=== PATIENT | female | born 1935 | race Caucasian/White ===

== ENCOUNTER 2024-02-02 16:14 | Inpatient (IN) | payer MEDICARE, BC ==
[2024-02-02] MEDS ORDERED: Ondansetron PF 4 MG/2 ML Vial IVP PRN (20:08)
[2024-02-02 20:44] LABS: #Basophils Less than 0.03 10x3/uL (0.0-0.2); #Eosinphils Less than 0.03 10x3/uL (0.0-0.7); %Basophils 0.2 % (0.0-1.0); %Eosinophils 0.2 % (0.0-10.0); %Lymphocytes 11.9 % (21.0-51.0); %Monocytes 1.5 % (0.0-10.0); %Neutrophils 85.6 % (42.0-75.0); Hematocrit 33.5 % (36.0-47.0); Hemoglobin 10.9 g/dL (12.0-16.0); Mean Corpuscular HGB CONC 32.5 g/dL (32.0-36.0); Mean Corpuscular Hemoglobin 29.3 pg (27.0-31.0); Mean Corpuscular Volume 90.1 fL (78.0-98.0); Mean Platelet Volume 10.3 fL (7.4-10.4); Platelet Count 128 10x3/uL (130-400); RBC Distribution Width 13.9 % (11.5-14.5); Red Blood Cell (RBC) Count 3.72 mill/uL (4.20-5.40)
[2024-02-02] MEDS: levETIRAcetam 500 MG (5 mL) VIAL SLOW IVP SCH (21:06)
[2024-02-02] MEDS: Dexamethasone 4 mg/ml Vial SLOW IVP SCH (21:07)
[2024-02-02] MEDS ORDERED: Loratadine 10 MG TAB PO PRN (21:40)
[2024-02-03] MEDS: Sodium Chloride 0.9% 1,000 ML IV SCH (01:34)
[2024-02-03 04:58] LABS: #Basophils Less than 0.03 10x3/uL (0.0-0.2); #Eosinphils Less than 0.03 10x3/uL (0.0-0.7); %Basophils 0.2 % (0.0-1.0); %Lymphocytes 19.7 % (21.0-51.0); %Monocytes 1.9 % (0.0-10.0); %Neutrophils 77.6 % (42.0-75.0); Hematocrit 32.8 % (36.0-47.0); Hemoglobin 10.7 g/dL (12.0-16.0); Mean Corpuscular HGB CONC 32.6 g/dL (32.0-36.0); Mean Corpuscular Hemoglobin 30.1 pg (27.0-31.0); Mean Corpuscular Volume 92.1 fL (78.0-98.0); Mean Platelet Volume 10.4 fL (7.4-10.4); Platelet Count 137 10x3/uL (130-400); RBC Distribution Width 13.9 % (11.5-14.5); Red Blood Cell (RBC) Count 3.56 mill/uL (4.20-5.40)
[2024-02-03 05:45] LABS: Anion Gap 15 mmol/L (10-20); BUN (Urea Nitrogen) 16 mg/dL (9.8-20.1); Calc. Creatinine Clearance 65 mL/min (70-130); Calcium 8.8 mg/dL (7.8-10.44); Carbon Dioxide 25 mmol/L (23-31); Chloride 107 mmol/L (98-107); Estimated GFR 85; Glucose 139 mg/dL (83-110); Potassium 4.1 mmol/L (3.5-5.1); Sodium 143 mmol/L (136-145)
[2024-02-03] MEDS: Levothyroxine Sodium 112 MCG TAB PO SCH (05:58)
[2024-02-03] MEDS: Digoxin 0.125 MG TAB PO SCH (09:14)
[2024-02-03] MEDS: Hydrochlorothiazide 25 MG TAB PO SCH (09:15)
[2024-02-03] MEDS: Losartan 25 MG TAB PO SCH (09:15)
[2024-02-03] MEDS: levETIRAcetam 500 MG (5 mL) VIAL SLOW IVP SCH (09:31)
[2024-02-03] MEDS: Nystatin Powder 15 GM BOT TOP SCH (15:33)
[2024-02-03] MEDS: QUEtiapine 25 MG TAB PO SCH (22:14)
[2024-02-04 05:01] LABS: #Basophils Less than 0.03 10x3/uL (0.0-0.2); #Eosinphils Less than 0.03 10x3/uL (0.0-0.7); %Lymphocytes 17.1 % (21.0-51.0); %Monocytes 2.8 % (0.0-10.0); %Neutrophils 79.5 % (42.0-75.0); Hemoglobin 10.5 g/dL (12.0-16.0); Mean Corpuscular HGB CONC 31.8 g/dL (32.0-36.0); Mean Corpuscular Hemoglobin 29.4 pg (27.0-31.0); Mean Corpuscular Volume 92.4 fL (78.0-98.0); Mean Platelet Volume 10.6 fL (7.4-10.4); Platelet Count 149 10x3/uL (130-400); RBC Distribution Width 13.8 % (11.5-14.5); Red Blood Cell (RBC) Count 3.57 mill/uL (4.20-5.40)
[2024-02-04 05:49] LABS: Anion Gap 17 mmol/L (10-20); BUN (Urea Nitrogen) 25 mg/dL (9.8-20.1); Calc. Creatinine Clearance 69 mL/min (70-130); Calcium 8.7 mg/dL (7.8-10.44); Carbon Dioxide 23 mmol/L (23-31); Chloride 110 mmol/L (98-107); Estimated GFR 85; Glucose 128 mg/dL (83-110); Potassium 4.5 mmol/L (3.5-5.1); Sodium 145 mmol/L (136-145)
[2024-02-04] MEDS: Acetaminophen 325 MG TAB PO PRN (11:19)
[2024-02-04] MEDS: Lorazepam 2 MG/ML VIAL SLOW IVP PRN (14:21)
[2024-02-04] MEDS: Morphine 2 MG/ML VIAL SLOW IVP PRN (19:17)
[2024-02-05 04:47] VITALS: BMI 25.1
[2024-02-05 05:14] LABS: #Basophils Less than 0.03 10x3/uL (0.0-0.2); #Eosinphils Less than 0.03 10x3/uL (0.0-0.7); %Lymphocytes 15.1 % (21.0-51.0); %Monocytes 3.3 % (0.0-10.0); %Neutrophils 81.2 % (42.0-75.0); Hematocrit 31.4 % (36.0-47.0); Hemoglobin 9.7 g/dL (12.0-16.0); Mean Corpuscular HGB CONC 30.9 g/dL (32.0-36.0); Mean Corpuscular Hemoglobin 29.5 pg (27.0-31.0); Mean Corpuscular Volume 95.4 fL (78.0-98.0); Mean Platelet Volume 10.7 fL (7.4-10.4); Platelet Count 145 10x3/uL (130-400); RBC Distribution Width 14.3 % (11.5-14.5); Red Blood Cell (RBC) Count 3.29 mill/uL (4.20-5.40)
[2024-02-05 06:17] LABS: Anion Gap 15 mmol/L (10-20); BUN (Urea Nitrogen) 28 mg/dL (9.8-20.1); Calc. Creatinine Clearance 69 mL/min (70-130); Calcium 8.6 mg/dL (7.8-10.44); Carbon Dioxide 18 mmol/L (23-31); Chloride 111 mmol/L (98-107); Estimated GFR 84; Glucose 164 mg/dL (83-110); Potassium 4.3 mmol/L (3.5-5.1); Sodium 140 mmol/L (136-145)
[2024-02-05] MEDS ORDERED: HYDROcodone/Acetaminophen 5/325 mg Tablet PO PRN (14:32)
[2024-02-05] MEDS: Dexamethasone 4 MG TAB PO SCH (17:02)
[2024-02-05] MEDS: levETIRAcetam 500 MG TAB PO SCH (20:36)
[2024-02-06] MEDS: levETIRAcetam 500 mg/5 ml Oral Solution PO SCH ×2 (10:08→20:38)
[2024-02-06 19:59] VITALS: BP 150/99; TEMP 98
== END 2024-02-07 00:12 | DRG 54 ==
LOC: UNDOADMOB 16:14 → MSONC 16:14 → OBSVTOIN 02-03 17:04 → INTOOBSV 02-03 17:04
PROVIDERS: ADMIT Internal Medicine; ATTEND Internal Medicine
PROC: 4A00X4Z Measurement of Central Nervous Electrical Activity, External Approach (ICD-10-PCS; principal; 2024-02-03)
DX: C71.9 Malignant neoplasm of brain, unspecified (principal); G93.41 Metabolic encephalopathy; G93.6 Cerebral edema; E03.9 Hypothyroidism, unspecified; I10 Essential (primary) hypertension; I48.91 Unspecified atrial fibrillation; Z66 Do not resuscitate; Z51.5 Encounter for palliative care; F03.90 Unspecified dementia, unspecified severity, without behavioral disturbance, psychotic disturbance, mood disturbance, and anxiety; K21.9 Gastro-esophageal reflux disease without esophagitis; Z88.8 Allergy status to other drugs, medicaments and biological substances; Z79.899 Other long term (current) drug therapy; Z79.890 Hormone replacement therapy; Z86.73 Personal history of transient ischemic attack (TIA), and cerebral infarction without residual deficits; Z79.82 Long term (current) use of aspirin; Z79.52 Long term (current) use of systemic steroids
CPT/HCPCS: 36415; 36416; 70450; 71045; 80048; 80053; 81001; 83605; 83735; 84443; 84484; 85025; 93005; 95816; 95819; 96365; 96375; 96376; G0378; J1100; J1953; J2060; J2272; J7050; J8540